=== PATIENT | female | born 1970 | race Caucasian/White ===

== ENCOUNTER 2020-02-03 08:59 | Emergency (ER) | payer BC, SELFPAY ==
[2020-02-03 09:01] VITALS: BP 137/85; PULSE 68; RESP 14; TEMP 36.5; O2SAT 96; BMI 25.0
[2020-02-03 09:48] LABS: Add Manual Diff / Slide Review NO; Basophils Absolute Auto 0 /uL (0-100); Basophils Percent Auto 0.6 % (0-2); Eosinophils Absolute Auto 1600 /uL (0-450); Eosinophils Percent Auto 19.1 % (2-4); Hematocrit 42.8 % (36-46); Hemoglobin 14.5 g/dL (12.0-16.0); Lymphocytes Absolute Auto 1500 /uL (1100-4500); Lymphocytes Percent Auto 18.3 % (25-40); Mean Corpuscular HGB Conc 33.9 % (30-36); Mean Corpuscular Hemoglobin 30.3 PG (26-34); Mean Corpuscular Volume 89.5 fL (80-100); Monocytes Absolute Auto 600 /uL (0-900); Monocytes Percent Auto 7.1 % (3-14); Neutrophils Absolute Auto 4400 /uL (1500-7000); Neutrophils Percent Auto 54.9 % (50-75); Platelet Count 223 X10^3/uL (150-400); Red Blood Cell Count 4.78 X10^6/uL (4.0-5.2); Red Cell Distribution Width 13.5 % (11.6-14.8); White Blood Cell Count 8.1 X10^3/uL (4.5-11.0)
[2020-02-03] MEDS: SODIUM CHLORIDE 0.9% 1,000 ML 1000 ML IV (09:59)
[2020-02-03 10:00] LABS: Alanine Aminotransferase 57 IU/L (<35); Albumin 4.6 g/dL (3.5-5.0); Albumin Globulin Ratio 1.5 (1.0-2.8); Alkaline Phosphatase 100 U/L (38-126); BUN Creatinine Ratio 15.4 (6-22); Bilirubin Total 0.7 mg/dL (0.2-1.3); Blood Urea Nitrogen 12 mg/dL (7-17); Calcium 9.6 mg/dL (8.4-10.2); Carbon Dioxide 29 mmol/L (22-32); Chloride 103 mmol/L (98-107); Estimated Glomerular Filt Rate > 60.0 mL/min (>60); Glucose 91 mg/dL (70-100); Sodium 137 mmol/L (137-145); Total Protein 7.6 g/dL (6.3-8.2)
[2020-02-03 10:00] LABS: Lipase 140 U/L (23-300)
[2020-02-03 10:01] LABS: Aspartate Aminotransferase 63 IU/L (14-36); HEMOLYSIS 53 (0-50); Potassium 4.2 mmol/L (3.4-5.1)
--- NOTE | 2020-02-03 10:39 | DI.CT.S_ITS ---
PROCEDURE: CT ABDOMEN PELVIS W CON INDICATIONS: abdominal pain with oersistent recurrent diarrhea TECHNIQUE: After the administration of oral and intravenous contrast, 5 mm thick sections acquired from the diaphragms to the symphysis. 5 mm thick coronal and sagittal reformats were performed. For radiation dose reduction, the following was used: automated exposure control, adjustment of mA and/or kV according to patient size. COMPARISON: None. FINDINGS: Image quality: Excellent. ABDOMEN: Lung bases: Lung bases are clear. Heart size is normal. There is concentric thickening of the distal esophagus. Solid organs: Liver is demonstrates nodular contour suggesting cirrhosis. Gallbladder is surgically absent. Mild intrahepatic and extrahepatic biliary dilation may be related to cholecystectomy. Pancreas enhances normally. Spleen is normal in size and enhancement. No adrenal nodules. Kidneys are normal in size and enhancement, without hydronephrosis. Peritoneum and bowel: There is gastric antral thickening. There is thickening of loops of jejunum and ileum. Colon loops are normal in caliber and wall thickness. There are colonic diverticula. A moderate amount of free fluid is present. No free air. Nodes and vessels: Multiple mildly enlarged mesenteric lymph nodes are present. No enlarged retroperitoneal lymph nodes. Aorta and inferior vena cava are normal in caliber. Miscellaneous: No ventral hernias. PELVIS: Genitourinary: Bladder wall thickness is normal. Miscellaneous: No inguinal hernias or adenopathy. Bones: No suspicious bony lesions. No vertebral body compression fractures. There is degenerative disease in lumbar spine. Moderate central canal stenosis at L4-L5. IMPRESSION: 1. Thickening of loops of jejunum and ileum, which may be infectious or inflammatory in etiology. 2. Gastric thickening could be secondary to peptic ulcer disease. 3. Concentric thickening of the distal esophagus. 4. Diverticulosis without diverticulitis. 5. Cirrhotic liver. 6. Moderate amount of ascites. Dictated by: Jeannine Contreras M.D. on 02/03/2020 at 11:01 Approved by: Jeannine Contreras M.D. on 02/03/2020 at 11:27
[2020-02-03 10:58] VITALS: BP 131/74; PULSE 74; RESP 18; O2SAT 98
[2020-02-03 11:30] VITALS: BP 124/72; PULSE 62; O2SAT 98
--- NOTE | 2020-02-03 12:30 | ED_ITS ---
HPI - Nausea/Vomiting/Diarrhea General Chief complaint: Nausea/Vomiting/Diarrhea Stated complaint: Gastro-intestinal issues x2 wks Time Seen by Provider: 02/03/20 09:15 Source: patient Mode of arrival: Ambulatory Limitations: no limitations History of Present Illness HPI Narrative: CC: Nausea, Vomiting and diarrhea HPI: The patient is a 50-year-old female who presents to the emergency department with varying degrees of abdominal discomfort for the last 2 weeks prior to admission associated with intermittent periods of nausea vomiting and diarrhea. She describes the pain and discomfort as a crampy intermittently sharp discomfort. Her discomfort is worse with lying down and better sitting up. Her discomfort is relieved by having a bowel movement. The patient feels hungry however she develops increased pain and discomfort when eating. For the last 2-3 days she has semi formed stools. Two weeks ago the patient had blood in her stool. She has had a stool sample that has been sent for C diff which wa s negative. She states that her liver enzymes have been elevated. She denies a history of hepatitis, TB, and HIV. She has had her gallbladder removed but has not had pancreatitis diabetes mellitus hypertension myocardial infarction or COPD. She has had intermittent intense nausea. She has had no appendectomy but has had a cholecystectomy. She denies a history of Crohn's disease or ulcerative colitis or diverticulitis but states that she has had irritable bowel syndrome. She admits to a family history of Crohn's disease. She periodically smoke cigarettes does not drink alcohol or use any marijuana. She denies any fever but has had intermittent chills and sweats. She has had no significant nasal congestion nasal drainage or sore throat. She denies any palpitations but periodically feels lightheaded and dizzy without any chest pain cough or shortness of breath. She has had no hematemesis coffee-ground emesis. She has had no urinary symptomatology. She is not on any blood thinners. Related Data Previous Rx's Medication Instructions Recorded ciprofloxacin HCl [Cipro] 500 mg PO Q12H #14 tab 02/03/20 dicyclomine 20 mg PO TID #15 tab 02/03/20 loperamide 2 mg PO Q4H #12 caplet 02/03/20 metronidazole [Flagyl] 500 mg PO Q12H #14 tab 02/03/20 prednisone 40 mg PO DAILY #10 tab 04/30/20 Allergies Allergy/AdvReac Type Severity Reaction Status Date / Time acetaminophen [From Vicodin] Allergy Verified 02/03/20 09:20 hydrocodone [From Vicodin] Allergy Verified 02/03/20 09:20 latex Allergy Verified 02/03/20 09:20 oxycodone Allergy Verified 02/03/20 09:20 spironolactone Allergy Verified 02/03/20 09:20 Sulfa (Sulfonamide Allergy Verified 02/03/20 09:20 Antibiotics) Review of Systems Review of Systems Narrative: Review of systems are negative except for those mentioned in the history of present illness. Patient History Social History Smoking Status: Current some day smoker Smoking Status: Current some day smoker alcohol intake frequency: holidays/special occasions only Substance Use Type: does not use Exam Narrative Exam Narrative: PHYSICAL EXAM: CONSTITUTIONAL: Awake, Alert, Oriented, Coherent, Cooperative in NAD. Does not appear toxic or ill. The patient has a normal build. HEAD: AT/NC EENT: PERRL, FROM of eyes, no discharge, NOSE:No epistaxis or nasal drainage MOUTH:Oral mucosa is moist and pink, posterior pharynx is without erythema or exudate. NECK: Supple, no obvious JVD, Trachea is midline without stridor, no palpable LN. SPINE: Palpationof the cervical, Thoracic, Lumbar or Sacral spine reveals no gross deformity or tenderness. No CVA tenderness. THORAX: No deformity, retractions, chest wall tenderness. LUNGS: Clear, symmetrical breath sounds without respiratory distress. HEART: Normal heart tones, regular rhythm and rate without murmur. ABDOMEN: Soft, diffuse abdominal tenderness in all 4 quadrants without any significant guarding rebound or rigidity. There was no palpable organomegaly. LYMPHATIC: no palpable spleen. EXTREMITIES: No edema, deformity, tenderness . SKIN: No rash, bruising, petechiae or purpura. NEURO: Awake, alert, oriented, conversive, cranial nerves II-XII are symmetrical , moves all 4 extremities and is ambulatory. Initial Vital Signs Initial Vital Signs: Vital Signs Temperature 97.7 F 02/03/20 09:01 Pulse Rate 68 02/03/20 09:01 Respiratory Rate 14 02/03/20 09:01 Blood Pressure 137/85 02/03/20 09:01 Pulse Oximetry 96 02/03/20 09:01 Course Course Course Narrative: 1231: CT of your abdomen reveals; 1. Thickening of the loops of the jejunum and ileum which may be infectious or inflammatory in etiology. 2. Gastric thickening could be secondary to peptic ulcer disease. 3. Concentric thickening of the distal esophagus. 4. Diverticulosis without diverticulitis 5. Cirrhosis of the liver 5. Ascites 1321: The patient admits to a family history of Crohn's disease. The patient process by did some symptomatology that made it sound like she had of GERD and a possible esophageal stricture. She was advised that she needed to be seen by her primary care physician and referred to a pay per click strategist for a possible upper endoscopy as well as lower endoscopy and biopsy of her ileum. With the CT findings of thickened inflamed wall of the jejunum and ileum it was thought that the patient may have terminal ileitis or Crohn's disease since the patient has a family history. Consequently she was administered Cipro and Flagyl. She was prescribed dicyclomine for any abdominal cramps pain and discomfort. She was informed to use either the Imodium or loperamide for her diarrhea. She was a given a prescription for prednisone to help with the immediate inflammatory changes involving the jejunum and ileum if she had Crohn's disease. She was advised to return if she develops uncontrollable abdominal pain persistent nausea and vomiting fever, dizziness lightheadedness or feeling faint. Orders Ordered: ED Orders 02/03/20 09:40 Complete Blood Count AUTO DIFF Stat Lipase Stat 02/03/20 09:43 Comprehensive Metabolic Panel Stat 02/03/20 10:39 CT abdomen pelvis w con Stat Discontinued Medications Sodium Chloride (Normal Saline 0.9%) 1,000 mls @ 1,000 mls/hr IV BOLUS ONE Stop: 02/03/20 10:42 Last Infusion: 02/03/20 12:40 Dose: 0 mls/hr Documented by: Admin: 02/03/20 09:59 Dose: 1,000 mls/hr Documented by: CHRISTOPHER Ciprofloxacin (Cipro) 400 mg in 200 mls @ 200 mls/hr IV NOW LI Last Infusion: 02/03/20 15:09 Dose: 0 mls/hr Documented by: Admin: 02/03/20 13:49 Dose: 200 mls/hr Documented by: CHRISTOPHER Metronidazole (Flagyl) 500 mg in 100 mls @ 100 mls/hr IV NOW ONE Stop: 02/03/20 13:34 Last Infusion: 02/03/20 13:48 Dose: 0 mls/hr Documented by: Admin: 02/03/20 12:41 Dose: 100 mls/hr Documented by: CHRISTOPHER Methylprednisolone (Solu-Medrol 125 Mg Vial) 125 mg IV NOW ONE Stop: 02/03/20 13:11 Last Admin: 02/03/20 13:52 Dose: 125 mg Documented by: CHRISTOPHER Vital Signs Vital signs: Vital Signs - 8 hr 02/03/20 09:01 02/03/20 10:58 02/03/20 11:30 Temperature 97.7 F Pulse Rate 68 74 62 Respiratory Rate 14 18 Blood Pressure 137/85 Blood Pressure [Right Arm] 131/74 124/72 Pulse Oximetry 96 98 98 02/03/20 14:16 02/03/20 14:46 02/03/20 15:39 Temperature Pulse Rate 87 69 62 Respiratory Rate 17 18 Blood Pressure 137/86 Blood Pressure [Right Arm] 131/79 129/77 Pulse Oximetry 98 98 99 MDM - Nausea/Vomiting/Diarrhea Medical Records Attestation: I reviewed the patient's medical records. Lab Data Attestation: I reviewed the patient's lab results. Result diagrams: 02/03/20 09:40 02/03/20 09:43 Labs: Lab Results 02/03/20 02/03/20 02/03/20 Range/Units 09:40 09:40 09:43 WBC 8.1 (4.5-11.0) X10^3/uL RBC 4.78 (4.0-5.2) X10^6/uL Hgb 14.5 (12.0-16.0) g/dL Hct 42.8 (36-46) % MCV 89.5 (80-100) fL MCH 30.3 (26-34) PG MCHC 33.9 (30-36) % RDW 13.5 (11.6-14.8) % Plt Count 223 (150-400) X10^3/uL Neut % (Auto) 54.9 (50-75) % Lymph % (Auto) 18.3 L (25-40) % [place] % (Auto) 7.1 (3-14) % Eos % (Auto) 19.1 H (2-4) % Baso % (Auto) 0.6 (0-2) % Neut # (Auto) 4400 (2267-4616) /uL Lymph # (Auto) 1500 (6831-1991) /uL [place] # (Auto) 600 (0-900) /uL Eos # (Auto) 1600 H (0-450) /uL Baso # (Auto) 0 (0-100) /uL Sodium 137 (137-145) mmol/L Potassium 4.2 (3.4-5.1) mmol/L Chloride 103 (98-107) mmol/L Carbon Dioxide 29 (22-32) mmol/L BUN 12 (7-17) mg/dL Creatinine 0.78 (0.52-1.04) mg/dL Estimated GFR > 60.0 (>60) mL/min BUN/Creatinine Ratio 15.4 (6-22) Glucose 91 (70-100) mg/dL Calcium 9.6 (8.4-10.2) mg/dL Total Bilirubin 0.7 (0.2-1.3) mg/dL AST 63 H (14-36) IU/L ALT 57 H (<35) IU/L Alkaline Phosphatase 100 (38-126) U/L Total Protein 7.6 (6.3-8.2) g/dL Albumin 4.6 (3.5-5.0) g/dL Globulin 3.0 (1.7-4.1) g/dL Albumin/Globulin Ratio 1.5 (1.0-2.8) Lipase 140 (23-300) U/L Point of Care Testing Test Results Negative Urine Dip Bedside Urine Glucose Negative Bedside Urine Bilirubin - Negative Bedside Urine Ketone - Negative Urine Specific [place] 1.010 Bedside Urine Occult Blood - Negative Bedside Urine pH 7.0 Bedside Urine Protein - Negative Bedside Urine Urobilinogen - Negative Bedside Urine Nitrite - Negative Bedside Urine Leukocytes - Negative Esterase Discharge Plan Departure Patient Disposition: Home Clinical Impression: Diverticulosis, Abnormal liver function Ileitis, regional Qualifiers: Digestive disease complication type: without complication Qualified Code(s): K50.00 - Crohn's disease of small intestine without complications Ascites Qualifiers: Ascites type: other type Qualified Code(s): R18.8 - Other ascites Discharge Date/Time: 02/03/20 15:41 Instructions: DI for Crohn's Disease, DI for Nausea -- Adult, DI for Vomiting -- Adult Activity Restrictions/Additional Instructions: 1. Drink 2-3 L of fluid per day. 2. Continue either Imodium or loperamide for diarrhea. 3. Follow-up with your primary care physician for a referral to a pay per click strategist for an upper and lower endoscopy. 4. Take the Bentyl 20 mg tabs 3 times a D as needed for cramps. 5. Take the prednisone as prescribed daily for the next 5 days. 6. Continue and take the Cipro 500 mg twice a day Flagyl 500 mg twice a day . 7. Follow-up to be rechecked by your primary care physician in 48-72 hours. 8. If you develop severe worsening abdominal pain that is intolerable, persist nausea and vomiting, feeling faint you need to return to the emergency department for further evaluation Prescriptions: New dicyclomine 20 mg tablet 20 mg PO TID Qty: 15 RF: 0 prednisone 20 mg tablet 40 mg PO DAILY Qty: 10 RF: 0 ciprofloxacin HCl [Cipro] 500 mg tablet 500 mg PO Q12H Qty: 14 RF: 0 metronidazole [Flagyl] 500 mg tablet 500 mg PO Q12H Qty: 14 RF: 0 loperamide 2 mg capsule 2 mg PO Q4H Qty: 12 RF: 0 Referrals: Jeanie Fisher ARNP [Primary Care Provider] -
[2020-02-03] MEDS: metroNIDAZOLE 500 MG/100 ML PIGGYBACK 100 MG IV (12:41)
[2020-02-03] MEDS: CIPROFLOXACIN 400 MG/200 ML PIGGYBACK 200 MG IV (13:49)
[2020-02-03] MEDS: methylPREDNISolone 125 MG/2 ML VIAL IV (13:52)
[2020-02-03 14:16] VITALS: BP 131/79; PULSE 87; RESP 17; O2SAT 98
[2020-02-03 14:46] VITALS: BP 129/77; PULSE 69; O2SAT 98
[2020-02-03 15:39] VITALS: BP 137/86; PULSE 62; RESP 18; O2SAT 99
== END 2020-02-03 15:41 | disposition home or self-care (01) ==
PROVIDERS: Emergency Provider Emergency Medicine; PCP Nurse Practitioner Family
DX: K57.90 Diverticulosis of intestine, part unspecified, without perforation or abscess without bleeding (principal); R94.5 Abnormal results of liver function studies; K50.00 Crohn's disease of small intestine without complications; R18.8 Other ascites
CPT/HCPCS: 36415; 74177; 80053; 81003; 81025; 83690; 85025; 96361; 96365; 96367; 96375; 99284; 99285; J0744; J2930; Q9967